=== PATIENT | male | born 1965 | race Caucasian/White ===

== ENCOUNTER → 2016-04-14 | Outpatient (CLI) | payer MEDICARE, OTHER ==
[~2016-04-14] VITALS: Ht 175.3 cm; Wt 86.4 kg
[~2016-04-14] MED LIST: AMIT50TA3 PO; AMLO-512 PO; ASCO500 PO; ASPI-556 PO; BACTDSB PO; DICL4100G TP; DOXY100C PO; FERR-89 PO; FOLI1 PO; HYDR-3290 PO; HYDR40TA PO; LEVO500 PO; METH2.5T6 PO; PARO20TA24 PO; POLY238P2 PO; PREG75 PO; TAMS0.4C32 PO
[2016-04-14 14:16] VITALS: BP 129/77
== END | disposition home or self-care (01) ==
LOC: EDBD 13:30 → HBOWC 13:35
PROVIDERS: ATTEND Emergency Medicine
DX: L97.511 Non-pressure chronic ulcer of other part of right foot limited to breakdown of skin (principal); L97.311 Non-pressure chronic ulcer of right ankle limited to breakdown of skin; L97.321 Non-pressure chronic ulcer of left ankle limited to breakdown of skin; L98.491 Non-pressure chronic ulcer of skin of other sites limited to breakdown of skin; M86.8X8 Other osteomyelitis, other site; L81.9 Disorder of pigmentation, unspecified; M12.88 Other specific arthropathies, not elsewhere classified, other specified site; F32.9 Major depressive disorder, single episode, unspecified; L84 Corns and callosities; Z86.718 Personal history of other venous thrombosis and embolism; Z89.022 Acquired absence of left finger(s)
CPT/HCPCS: 97597; G0463

== ENCOUNTER → 2016-04-22 | Outpatient (CLI) | payer MEDICARE, OTHER ==
[2016-04-22 11:10] VITALS: BP 150/70
== END | disposition home or self-care (01) ==
LOC: HBOWC 10:45
PROVIDERS: ATTEND Emergency Medicine
DX: T87.81 Dehiscence of amputation stump (principal); L97.513 Non-pressure chronic ulcer of other part of right foot with necrosis of muscle; L97.321 Non-pressure chronic ulcer of left ankle limited to breakdown of skin; L98.491 Non-pressure chronic ulcer of skin of other sites limited to breakdown of skin; F32.9 Major depressive disorder, single episode, unspecified; M86.8X8 Other osteomyelitis, other site; L84 Corns and callosities; Z86.718 Personal history of other venous thrombosis and embolism; Y83.5 Amputation of limb(s) as the cause of abnormal reaction of the patient, or of later complication, without mention of misadventure at the time of the procedure
CPT/HCPCS: 97597

== ENCOUNTER → 2016-05-03 | Outpatient (CLI) | payer MEDICARE, OTHER ==
[~2016-05-03] MED LIST changes: -DOXY100C PO; -FERR-89 PO; +FERS325 PO
[2016-05-03 11:39] VITALS: BP 135/70
== END | disposition home or self-care (01) ==
LOC: HBOWC 11:00
PROVIDERS: ATTEND Emergency Medicine
DX: T87.81 Dehiscence of amputation stump (principal); L97.511 Non-pressure chronic ulcer of other part of right foot limited to breakdown of skin; F32.9 Major depressive disorder, single episode, unspecified; M86.8X8 Other osteomyelitis, other site; Z89.022 Acquired absence of left finger(s); Z86.718 Personal history of other venous thrombosis and embolism; Y83.5 Amputation of limb(s) as the cause of abnormal reaction of the patient, or of later complication, without mention of misadventure at the time of the procedure
CPT/HCPCS: 97597; 97598

== ENCOUNTER → 2016-05-17 | Outpatient (CLI) | payer MEDICARE, OTHER ==
[2016-05-17 11:30] VITALS: BP 136/87
== END | disposition home or self-care (01) ==
LOC: HBOWC 11:03
PROVIDERS: ATTEND Emergency Medicine
DX: L97.511 Non-pressure chronic ulcer of other part of right foot limited to breakdown of skin (principal); M86.8X8 Other osteomyelitis, other site; G62.9 Polyneuropathy, unspecified; L81.9 Disorder of pigmentation, unspecified; D56.9 Thalassemia, unspecified; Z89.022 Acquired absence of left finger(s); Z89.421 Acquired absence of other right toe(s)
CPT/HCPCS: 97597

== ENCOUNTER → 2016-05-31 | Outpatient (CLI) | payer MEDICARE, OTHER ==
[~2016-05-31] MED LIST changes: +DOXY100C PO; +FERR-89 PO; -FERS325 PO
[2016-05-31 10:37] VITALS: BP 141/79
== END | disposition home or self-care (01) ==
LOC: HBOWC 10:06
PROVIDERS: ATTEND Emergency Medicine
DX: T87.81 Dehiscence of amputation stump (principal); L97.511 Non-pressure chronic ulcer of other part of right foot limited to breakdown of skin; F32.9 Major depressive disorder, single episode, unspecified; D56.3 Thalassemia minor; M86.9 Osteomyelitis, unspecified; G62.9 Polyneuropathy, unspecified; R21 Rash and other nonspecific skin eruption; Z89.022 Acquired absence of left finger(s); Z89.421 Acquired absence of other right toe(s); Y83.5 Amputation of limb(s) as the cause of abnormal reaction of the patient, or of later complication, without mention of misadventure at the time of the procedure
CPT/HCPCS: 87070; 87147; 87205; 97597

== ENCOUNTER → 2016-07-13 | Outpatient (CLI) | payer MEDICARE, OTHER ==
[~2016-07-13] MED LIST changes: -BACTDSB PO; -LEVO500 PO; +LIDOCAINE HCL 2% 5 ML JELLY TP ONE
[2016-07-13 15:49] VITALS: BP 113/76
== END | disposition home or self-care (01) ==
LOC: HBOWC 14:32
PROVIDERS: ATTEND Emergency Medicine
DX: L97.511 Non-pressure chronic ulcer of other part of right foot limited to breakdown of skin (principal); L97.521 Non-pressure chronic ulcer of other part of left foot limited to breakdown of skin; L97.811 Non-pressure chronic ulcer of other part of right lower leg limited to breakdown of skin; L97.311 Non-pressure chronic ulcer of right ankle limited to breakdown of skin; F32.9 Major depressive disorder, single episode, unspecified; Z89.421 Acquired absence of other right toe(s); M86.8X8 Other osteomyelitis, other site; Z89.022 Acquired absence of left finger(s)
CPT/HCPCS: 97597

== ENCOUNTER → 2016-07-26 | Outpatient (CLI) | payer MEDICARE, OTHER ==
[~2016-07-26] MED LIST changes: -LIDOCAINE HCL 2% 5 ML JELLY TP ONE
[2016-07-26 15:49] VITALS: BP 144/94
== END | disposition home or self-care (01) ==
LOC: HBOWC 14:33
PROVIDERS: ATTEND Emergency Medicine Undersea and Hyperbaric Medicine
DX: L97.421 Non-pressure chronic ulcer of left heel and midfoot limited to breakdown of skin (principal); L97.411 Non-pressure chronic ulcer of right heel and midfoot limited to breakdown of skin; L97.311 Non-pressure chronic ulcer of right ankle limited to breakdown of skin; G62.9 Polyneuropathy, unspecified; M86.8X8 Other osteomyelitis, other site; F32.9 Major depressive disorder, single episode, unspecified; Z89.421 Acquired absence of other right toe(s); Z89.022 Acquired absence of left finger(s)
CPT/HCPCS: 97597

== ENCOUNTER → 2016-08-20 | Outpatient (CLI) | payer MEDICARE, OTHER ==
[2016-08-20 14:54] VITALS: BP 102/63
== END | disposition home or self-care (01) ==
LOC: HBOWC 14:51
PROVIDERS: ATTEND Emergency Medicine Undersea and Hyperbaric Medicine
DX: L97.321 Non-pressure chronic ulcer of left ankle limited to breakdown of skin (principal); L97.311 Non-pressure chronic ulcer of right ankle limited to breakdown of skin; L97.421 Non-pressure chronic ulcer of left heel and midfoot limited to breakdown of skin; L97.521 Non-pressure chronic ulcer of other part of left foot limited to breakdown of skin; F32.9 Major depressive disorder, single episode, unspecified; M86.8X8 Other osteomyelitis, other site; G62.9 Polyneuropathy, unspecified; Z89.421 Acquired absence of other right toe(s); Z89.022 Acquired absence of left finger(s)
CPT/HCPCS: 97597

== ENCOUNTER → 2016-09-03 | Outpatient (CLI) | payer MEDICARE, OTHER ==
[~2016-09-03] MED LIST changes: +LIDOCAINE HCL 2% 5 ML JELLY TP ONE
[2016-09-03 14:09] VITALS: BP 128/78
== END | disposition home or self-care (01) ==
LOC: HBOWC 13:52
PROVIDERS: ATTEND Emergency Medicine
DX: L97.521 Non-pressure chronic ulcer of other part of left foot limited to breakdown of skin (principal); L97.511 Non-pressure chronic ulcer of other part of right foot limited to breakdown of skin; L97.321 Non-pressure chronic ulcer of left ankle limited to breakdown of skin; L97.311 Non-pressure chronic ulcer of right ankle limited to breakdown of skin; G62.9 Polyneuropathy, unspecified; M06.9 Rheumatoid arthritis, unspecified; F32.9 Major depressive disorder, single episode, unspecified; M86.8X8 Other osteomyelitis, other site; Z89.022 Acquired absence of left finger(s); Z89.421 Acquired absence of other right toe(s)
CPT/HCPCS: 97597

== ENCOUNTER → 2016-09-16 | Outpatient (CLI) | payer MEDICARE, OTHER ==
[~2016-09-16] MED LIST changes: -LIDOCAINE HCL 2% 5 ML JELLY TP ONE
[2016-09-16 14:52] VITALS: BP 136/60
== END | disposition home or self-care (01) ==
LOC: HBOWC 14:45
PROVIDERS: ATTEND Emergency Medicine
DX: L97.321 Non-pressure chronic ulcer of left ankle limited to breakdown of skin (principal); L97.311 Non-pressure chronic ulcer of right ankle limited to breakdown of skin; Z89.022 Acquired absence of left finger(s); Z89.421 Acquired absence of other right toe(s); F32.9 Major depressive disorder, single episode, unspecified; M86.8X8 Other osteomyelitis, other site; M06.9 Rheumatoid arthritis, unspecified
CPT/HCPCS: 97597

== ENCOUNTER → 2016-11-01 | Outpatient (CLI) | payer MEDICARE, OTHER ==
[~2016-11-01] MED LIST changes: +LIDOCAINE HCL 2% 5 ML JELLY TP ONE
[2016-11-01 15:01] VITALS: BP 143/81
== END | disposition home or self-care (01) ==
LOC: HBOWC 14:17
PROVIDERS: ATTEND Surgery Plastic and Reconstructive Surgery
DX: L97.321 Non-pressure chronic ulcer of left ankle limited to breakdown of skin (principal); L97.311 Non-pressure chronic ulcer of right ankle limited to breakdown of skin; F32.9 Major depressive disorder, single episode, unspecified; M06.9 Rheumatoid arthritis, unspecified; M86.8X8 Other osteomyelitis, other site; Z89.022 Acquired absence of left finger(s); Z89.421 Acquired absence of other right toe(s)
CPT/HCPCS: 97597

== ENCOUNTER → 2017-06-14 | Outpatient (CLI) | payer MEDICARE, OTHER ==
[~2017-06-14] VITALS: Ht 175.3 cm; Wt 82.6 kg
[2017-06-14 12:37] VITALS: BP 121/77
== END | disposition home or self-care (01) ==
LOC: HBOWC 10:55
PROVIDERS: ATTEND Emergency Medicine
DX: E11.622 Type 2 diabetes mellitus with other skin ulcer (principal); L89.523 Pressure ulcer of left ankle, stage 3; L97.321 Non-pressure chronic ulcer of left ankle limited to breakdown of skin; E11.621 Type 2 diabetes mellitus with foot ulcer; L97.411 Non-pressure chronic ulcer of right heel and midfoot limited to breakdown of skin; L89.613 Pressure ulcer of right heel, stage 3; E11.42 Type 2 diabetes mellitus with diabetic polyneuropathy; M06.9 Rheumatoid arthritis, unspecified; F32.9 Major depressive disorder, single episode, unspecified; E11.69 Type 2 diabetes mellitus with other specified complication; M86.8X8 Other osteomyelitis, other site; Z89.022 Acquired absence of left finger(s); Z89.421 Acquired absence of other right toe(s)
CPT/HCPCS: 11042; 87070; 87147; 87205

== ENCOUNTER → 2017-06-21 | Outpatient (CLI) | payer MEDICARE, OTHER ==
[~2017-06-21] MED LIST changes: -POLY238P2 PO
[2017-06-21 11:21] VITALS: BP 144/87
[2017-06-21 15:07] LABS: ALBUMIN 3.6 g/dL (3.4-5.0); C-REACTIVE PROTEIN QUANT 0.51 mg/dL (0.00-0.30)
== END | disposition home or self-care (01) ==
LOC: HBOWC 10:29
PROVIDERS: ATTEND Emergency Medicine
DX: E11.622 Type 2 diabetes mellitus with other skin ulcer (principal); L89.523 Pressure ulcer of left ankle, stage 3; L97.321 Non-pressure chronic ulcer of left ankle limited to breakdown of skin; M06.9 Rheumatoid arthritis, unspecified; E11.69 Type 2 diabetes mellitus with other specified complication; M86.8X8 Other osteomyelitis, other site; E11.42 Type 2 diabetes mellitus with diabetic polyneuropathy; F32.9 Major depressive disorder, single episode, unspecified; Z89.022 Acquired absence of left finger(s); Z89.421 Acquired absence of other right toe(s)
CPT/HCPCS: 11042; 84134; 85651; 86140

== ENCOUNTER → 2017-06-28 | Outpatient (CLI) | payer MEDICARE, OTHER ==
[2017-06-28 11:16] VITALS: BP 127/90
== END | disposition home or self-care (01) ==
LOC: HBOWC 10:34
PROVIDERS: ATTEND Emergency Medicine
DX: E11.622 Type 2 diabetes mellitus with other skin ulcer (principal); L97.321 Non-pressure chronic ulcer of left ankle limited to breakdown of skin; S91.301D Unspecified open wound, right foot, subsequent encounter; L89.523 Pressure ulcer of left ankle, stage 3; M06.9 Rheumatoid arthritis, unspecified; F32.9 Major depressive disorder, single episode, unspecified; E11.69 Type 2 diabetes mellitus with other specified complication; M86.8X8 Other osteomyelitis, other site; E11.42 Type 2 diabetes mellitus with diabetic polyneuropathy; Z89.421 Acquired absence of other right toe(s); Z89.022 Acquired absence of left finger(s); X58.XXXD Exposure to other specified factors, subsequent encounter
CPT/HCPCS: 11042

== ENCOUNTER → 2017-07-12 | Outpatient (CLI) | payer MEDICARE, OTHER ==
[2017-07-12 11:58] VITALS: BP 119/64
== END | disposition home or self-care (01) ==
LOC: HBOWC 11:26
PROVIDERS: ATTEND Emergency Medicine
DX: E11.621 Type 2 diabetes mellitus with foot ulcer (principal); L89.613 Pressure ulcer of right heel, stage 3; L97.411 Non-pressure chronic ulcer of right heel and midfoot limited to breakdown of skin; E11.622 Type 2 diabetes mellitus with other skin ulcer; L89.523 Pressure ulcer of left ankle, stage 3; L89.313 Pressure ulcer of right buttock, stage 3; L98.411 Non-pressure chronic ulcer of buttock limited to breakdown of skin; L97.321 Non-pressure chronic ulcer of left ankle limited to breakdown of skin; F32.9 Major depressive disorder, single episode, unspecified; M06.9 Rheumatoid arthritis, unspecified; E11.42 Type 2 diabetes mellitus with diabetic polyneuropathy; E11.69 Type 2 diabetes mellitus with other specified complication; M86.8X8 Other osteomyelitis, other site; Z89.421 Acquired absence of other right toe(s); Z89.022 Acquired absence of left finger(s)
CPT/HCPCS: 11042; 93880; 93925

== ENCOUNTER → 2017-07-19 | Outpatient (CLI) | payer MEDICARE, OTHER ==
[~2017-07-19] MED LIST changes: -LIDOCAINE HCL 2% 5 ML JELLY TP ONE
[2017-07-19 11:41] VITALS: BP 134/67
== END | disposition home or self-care (01) ==
LOC: HBOWC 10:31
PROVIDERS: ATTEND Emergency Medicine
DX: E11.622 Type 2 diabetes mellitus with other skin ulcer (principal); L89.523 Pressure ulcer of left ankle, stage 3; L97.321 Non-pressure chronic ulcer of left ankle limited to breakdown of skin; E11.42 Type 2 diabetes mellitus with diabetic polyneuropathy; M06.9 Rheumatoid arthritis, unspecified; E11.69 Type 2 diabetes mellitus with other specified complication; M86.8X8 Other osteomyelitis, other site; F32.9 Major depressive disorder, single episode, unspecified; Z89.022 Acquired absence of left finger(s); Z89.421 Acquired absence of other right toe(s)
CPT/HCPCS: 11042

== ENCOUNTER → 2017-08-02 | Outpatient (CLI) | payer MEDICARE, OTHER ==
[2017-08-02 11:00] VITALS: BP 148/80
== END | disposition home or self-care (01) ==
LOC: HBOWC 10:27
PROVIDERS: ATTEND Emergency Medicine
DX: E11.622 Type 2 diabetes mellitus with other skin ulcer (principal); L89.523 Pressure ulcer of left ankle, stage 3; L97.321 Non-pressure chronic ulcer of left ankle limited to breakdown of skin; E11.42 Type 2 diabetes mellitus with diabetic polyneuropathy; M06.9 Rheumatoid arthritis, unspecified; E11.69 Type 2 diabetes mellitus with other specified complication; M86.8X8 Other osteomyelitis, other site; F32.9 Major depressive disorder, single episode, unspecified; Z89.022 Acquired absence of left finger(s); Z89.421 Acquired absence of other right toe(s)
CPT/HCPCS: 11042

== ENCOUNTER → 2017-08-16 | Outpatient (CLI) | payer MEDICARE, OTHER ==
[~2017-08-16] MED LIST changes: -DOXY100C PO; +LEVO500 PO; +LIDOCAINE HCL 4% 50 ML SOLUTION ONE
[2017-08-16 10:48] VITALS: BP 107/61
== END | disposition home or self-care (01) ==
LOC: HBOWC 10:39
PROVIDERS: ATTEND Emergency Medicine
DX: E11.622 Type 2 diabetes mellitus with other skin ulcer (principal); L89.523 Pressure ulcer of left ankle, stage 3; L97.321 Non-pressure chronic ulcer of left ankle limited to breakdown of skin; L89.613 Pressure ulcer of right heel, stage 3; E11.621 Type 2 diabetes mellitus with foot ulcer; L97.411 Non-pressure chronic ulcer of right heel and midfoot limited to breakdown of skin; L89.313 Pressure ulcer of right buttock, stage 3; L98.411 Non-pressure chronic ulcer of buttock limited to breakdown of skin; E11.42 Type 2 diabetes mellitus with diabetic polyneuropathy; M06.9 Rheumatoid arthritis, unspecified; E11.69 Type 2 diabetes mellitus with other specified complication; M86.8X8 Other osteomyelitis, other site; F32.9 Major depressive disorder, single episode, unspecified; Z89.022 Acquired absence of left finger(s); Z89.421 Acquired absence of other right toe(s)
CPT/HCPCS: 11042; 87070; 87205

== ENCOUNTER → 2017-09-06 | Outpatient (CLI) | payer MEDICARE, OTHER ==
[~2017-09-06] MED LIST changes: +LIDOCAINE HCL 2% 5 ML JELLY TP ONE; -LIDOCAINE HCL 4% 50 ML SOLUTION ONE
[2017-09-06 11:10] VITALS: BP 129/81
== END | disposition home or self-care (01) ==
LOC: HBOWC 10:48
PROVIDERS: ATTEND Emergency Medicine
DX: E11.622 Type 2 diabetes mellitus with other skin ulcer (principal); L89.523 Pressure ulcer of left ankle, stage 3; L97.321 Non-pressure chronic ulcer of left ankle limited to breakdown of skin; L89.613 Pressure ulcer of right heel, stage 3; E11.621 Type 2 diabetes mellitus with foot ulcer; L97.411 Non-pressure chronic ulcer of right heel and midfoot limited to breakdown of skin; L89.313 Pressure ulcer of right buttock, stage 3; L98.411 Non-pressure chronic ulcer of buttock limited to breakdown of skin; E11.42 Type 2 diabetes mellitus with diabetic polyneuropathy; M06.9 Rheumatoid arthritis, unspecified; E11.69 Type 2 diabetes mellitus with other specified complication; M86.8X8 Other osteomyelitis, other site; F32.9 Major depressive disorder, single episode, unspecified; Z89.022 Acquired absence of left finger(s); Z89.421 Acquired absence of other right toe(s)
CPT/HCPCS: 11042

== ENCOUNTER → 2017-09-13 | Outpatient (CLI) | payer MEDICARE, OTHER ==
[~2017-09-13] MED LIST changes: -LIDOCAINE HCL 2% 5 ML JELLY TP ONE
[2017-09-13 11:20] VITALS: BP 121/74
[2017-09-13 12:49] LABS: ALBUMIN 3.8 g/dL (3.4-5.0); C-REACTIVE PROTEIN QUANT 0.43 mg/dL (0.00-0.30)
== END | disposition home or self-care (01) ==
LOC: HBOWC 10:44
PROVIDERS: ATTEND Emergency Medicine
DX: E11.622 Type 2 diabetes mellitus with other skin ulcer (principal); L89.523 Pressure ulcer of left ankle, stage 3; L97.321 Non-pressure chronic ulcer of left ankle limited to breakdown of skin; E11.621 Type 2 diabetes mellitus with foot ulcer; L89.613 Pressure ulcer of right heel, stage 3; L97.411 Non-pressure chronic ulcer of right heel and midfoot limited to breakdown of skin; L89.313 Pressure ulcer of right buttock, stage 3; L98.411 Non-pressure chronic ulcer of buttock limited to breakdown of skin; E11.42 Type 2 diabetes mellitus with diabetic polyneuropathy; M06.9 Rheumatoid arthritis, unspecified; E11.69 Type 2 diabetes mellitus with other specified complication; M86.8X8 Other osteomyelitis, other site; F32.9 Major depressive disorder, single episode, unspecified; Z89.022 Acquired absence of left finger(s); Z89.421 Acquired absence of other right toe(s)
CPT/HCPCS: 11042; 84134; 85651; 86140

== ENCOUNTER → 2017-09-27 | Outpatient (CLI) | payer MEDICARE, OTHER ==
[2017-09-27 11:15] VITALS: BP 126/77
== END | disposition home or self-care (01) ==
LOC: HBOWC 11:08
PROVIDERS: ATTEND Emergency Medicine
DX: E11.622 Type 2 diabetes mellitus with other skin ulcer (principal); L89.523 Pressure ulcer of left ankle, stage 3; L97.321 Non-pressure chronic ulcer of left ankle limited to breakdown of skin; E11.621 Type 2 diabetes mellitus with foot ulcer; L89.613 Pressure ulcer of right heel, stage 3; L97.411 Non-pressure chronic ulcer of right heel and midfoot limited to breakdown of skin; L89.313 Pressure ulcer of right buttock, stage 3; L98.411 Non-pressure chronic ulcer of buttock limited to breakdown of skin; E11.42 Type 2 diabetes mellitus with diabetic polyneuropathy; M06.9 Rheumatoid arthritis, unspecified; E11.69 Type 2 diabetes mellitus with other specified complication; M86.8X8 Other osteomyelitis, other site; F32.9 Major depressive disorder, single episode, unspecified; Z89.022 Acquired absence of left finger(s); Z89.421 Acquired absence of other right toe(s)
CPT/HCPCS: 11042

== ENCOUNTER → 2017-10-25 | Outpatient (CLI) | payer MEDICARE, OTHER ==
[~2017-10-25] MED LIST changes: +LIDOCAINE 2% 5 ML JELLY TP ONE
[2017-10-25 11:30] VITALS: BP 130/78
== END | disposition home or self-care (01) ==
LOC: HBOWC 11:29
PROVIDERS: ATTEND Emergency Medicine
DX: E11.621 Type 2 diabetes mellitus with foot ulcer (principal); L89.613 Pressure ulcer of right heel, stage 3; L97.411 Non-pressure chronic ulcer of right heel and midfoot limited to breakdown of skin; E11.622 Type 2 diabetes mellitus with other skin ulcer; L89.523 Pressure ulcer of left ankle, stage 3; L97.321 Non-pressure chronic ulcer of left ankle limited to breakdown of skin; L89.313 Pressure ulcer of right buttock, stage 3; L98.411 Non-pressure chronic ulcer of buttock limited to breakdown of skin; E11.42 Type 2 diabetes mellitus with diabetic polyneuropathy; M06.9 Rheumatoid arthritis, unspecified; E11.69 Type 2 diabetes mellitus with other specified complication; M86.8X8 Other osteomyelitis, other site; F32.9 Major depressive disorder, single episode, unspecified; Z89.022 Acquired absence of left finger(s); Z89.421 Acquired absence of other right toe(s)
CPT/HCPCS: 11042

== ENCOUNTER → 2018-02-22 | Outpatient (CLI) | payer MEDICARE, OTHER ==
[~2018-02-22] VITALS: Ht 175.3 cm; Wt 83.9 kg
[~2018-02-22] MED LIST changes: +APIX2.5T PO
[2018-02-22 11:15] VITALS: BP 124/66
== END | disposition home or self-care (01) ==
LOC: HBOWC 11:21
PROVIDERS: ATTEND Internal Medicine
DX: T81.89XA Other complications of procedures, not elsewhere classified, initial encounter (principal); E11.621 Type 2 diabetes mellitus with foot ulcer; L89.523 Pressure ulcer of left ankle, stage 3; L97.322 Non-pressure chronic ulcer of left ankle with fat layer exposed; L89.613 Pressure ulcer of right heel, stage 3; L97.412 Non-pressure chronic ulcer of right heel and midfoot with fat layer exposed; L89.893 Pressure ulcer of other site, stage 3; L97.511 Non-pressure chronic ulcer of other part of right foot limited to breakdown of skin; E11.40 Type 2 diabetes mellitus with diabetic neuropathy, unspecified; M06.9 Rheumatoid arthritis, unspecified; D56.3 Thalassemia minor; D64.89 Other specified anemias; F32.9 Major depressive disorder, single episode, unspecified; Z86.718 Personal history of other venous thrombosis and embolism; Z89.421 Acquired absence of other right toe(s); Z89.022 Acquired absence of left finger(s); Z79.899 Other long term (current) drug therapy; Y83.8 Other surgical procedures as the cause of abnormal reaction of the patient, or of later complication, without mention of misadventure at the time of the procedure; Y92.89 Other specified places as the place of occurrence of the external cause
CPT/HCPCS: 11042

== ENCOUNTER → 2018-03-15 | Outpatient (CLI) | payer MEDICARE, OTHER ==
[~2018-03-15] MED LIST changes: -ASPI-556 PO; -DICL4100G TP; -LEVO500 PO
[2018-03-15 11:00] VITALS: BP 119/69
[2018-03-15 11:31] VITALS: BP 119/69
[2018-03-15 13:21] LABS: BASOPHILS % (AUTO) 0.8 % (0.0-2.0); EOSINOPHILS % (AUTO) 1.3 % (1.0-6.0); HEMATOCRIT 32.7 % (41-53); LYMPHOCYTES # (AUTO) 1.8 K/uL (1.0-4.8); LYMPHOCYTES % (AUTO) 18.7 % (22.0-44.0); MEAN CORPUSCULAR HEMOGLOBIN 18.2 pg (26.0-34.0); MEAN CORPUSCULAR HGB CONC 30.5 G/dL (31.0-37.0); MONOCYTES # (AUTO) 0.5 K/uL (0.1-1.0); MONOCYTES % (AUTO) 4.9 % (2.0-9.0); NEUTROPHILS # (AUTO) 7.2 K/uL (1.8-7.7); NEUTROPHILS % (AUTO) 74.3 % (40.0-70.0); PLATELET COUNT (AUTO) 206 K/uL (150-450); RED BLOOD CELL COUNT(AUTO) 5.47 MIL/uL (4.50-5.90); RED CELL DISTRIBUTION WIDTH 20.6 % (11.5-14.5)
[2018-03-15 13:23] LABS: MEAN CORPUSCULAR VOLUME 66 fL (80-100)
[2018-03-15 13:39] LABS: ALANINE AMINOTRANSFERASE 23 U/L (12-78); ALBUMIN 3.7 g/dL (3.4-5.0); ALKALINE PHOSPHATASE 74 U/L (46-116); ANION GAP 7 mmol/L (8-16); ASPARTATE AMINOTRANSFERASE 23 U/L (15-37); BILIRUBIN,TOTAL 0.2 mg/dL (0.1-1.0); C-REACTIVE PROTEIN QUANT 0.18 mg/dL (0.00-0.30); CALCIUM, TOTAL 8.8 mg/dL (8.8-10.5); CARBON DIOXIDE 29 mmol/L (22-29); CHLORIDE 102 mmol/L (98-107); CREATININE 0.95 mg/dL (0.60-1.30); GLOMERULAR FILTR. RATE CALC > 60 mL/min (>60); GLUCOSE,RANDOM 82 mg/dL (70-110); POTASSIUM 4.6 mmol/L (3.5-5.1); SODIUM SERUM 138 mmol/L (136-145); UREA NITROGEN, BLOOD 22 mg/dL (7-18)
[2018-03-15 14:17] LABS: ERYTHROCYTE SEDIMENTATION RATE 13 MM/HR (0-15)
== END | disposition home or self-care (01) ==
LOC: HBOWC 10:59
PROVIDERS: ATTEND Internal Medicine
DX: M19.071 Primary osteoarthritis, right ankle and foot (principal); M79.89 Other specified soft tissue disorders; M19.072 Primary osteoarthritis, left ankle and foot; E11.9 Type 2 diabetes mellitus without complications
CPT/HCPCS: 84134; 85651; 86140

== ENCOUNTER → 2018-03-22 | Outpatient (CLI) | payer MEDICARE, OTHER ==
[~2018-03-22] MED LIST changes: -LIDOCAINE 2% 5 ML JELLY TP ONE
[2018-03-22 11:50] VITALS: BP 77/44
[2018-03-22 12:08] VITALS: BP 134/70
== END | disposition home or self-care (01) ==
LOC: HBOWC 10:55
PROVIDERS: ATTEND Internal Medicine
DX: T81.89XD Other complications of procedures, not elsewhere classified, subsequent encounter (principal); E11.622 Type 2 diabetes mellitus with other skin ulcer; L89.523 Pressure ulcer of left ankle, stage 3; L97.322 Non-pressure chronic ulcer of left ankle with fat layer exposed; E11.621 Type 2 diabetes mellitus with foot ulcer; L89.613 Pressure ulcer of right heel, stage 3; L97.412 Non-pressure chronic ulcer of right heel and midfoot with fat layer exposed; L89.893 Pressure ulcer of other site, stage 3; L97.512 Non-pressure chronic ulcer of other part of right foot with fat layer exposed; M06.9 Rheumatoid arthritis, unspecified; E11.69 Type 2 diabetes mellitus with other specified complication; M86.8X8 Other osteomyelitis, other site; M19.071 Primary osteoarthritis, right ankle and foot; M19.072 Primary osteoarthritis, left ankle and foot; E11.40 Type 2 diabetes mellitus with diabetic neuropathy, unspecified; E11.49 Type 2 diabetes mellitus with other diabetic neurological complication; F32.9 Major depressive disorder, single episode, unspecified; Z79.899 Other long term (current) drug therapy; Z86.718 Personal history of other venous thrombosis and embolism; Z89.421 Acquired absence of other right toe(s); Z89.022 Acquired absence of left finger(s); Y83.8 Other surgical procedures as the cause of abnormal reaction of the patient, or of later complication, without mention of misadventure at the time of the procedure
CPT/HCPCS: 11042

== ENCOUNTER → 2018-04-05 | Outpatient (CLI) | payer MEDICARE, OTHER ==
[2018-04-05 11:00] VITALS: BP 129/85
== END | disposition home or self-care (01) ==
LOC: HBOWC 10:56
PROVIDERS: ATTEND Internal Medicine
DX: T81.89XD Other complications of procedures, not elsewhere classified, subsequent encounter (principal); E11.622 Type 2 diabetes mellitus with other skin ulcer; L89.523 Pressure ulcer of left ankle, stage 3; L89.613 Pressure ulcer of right heel, stage 3; L89.893 Pressure ulcer of other site, stage 3; L97.322 Non-pressure chronic ulcer of left ankle with fat layer exposed; E11.621 Type 2 diabetes mellitus with foot ulcer; L97.412 Non-pressure chronic ulcer of right heel and midfoot with fat layer exposed; L97.512 Non-pressure chronic ulcer of other part of right foot with fat layer exposed; M06.9 Rheumatoid arthritis, unspecified; E11.69 Type 2 diabetes mellitus with other specified complication; M86.142 Other acute osteomyelitis, left hand; E11.40 Type 2 diabetes mellitus with diabetic neuropathy, unspecified; D56.3 Thalassemia minor; F32.9 Major depressive disorder, single episode, unspecified; M19.071 Primary osteoarthritis, right ankle and foot; M19.072 Primary osteoarthritis, left ankle and foot; Z89.022 Acquired absence of left finger(s); Z86.718 Personal history of other venous thrombosis and embolism; Z89.421 Acquired absence of other right toe(s); Z79.899 Other long term (current) drug therapy; Y83.8 Other surgical procedures as the cause of abnormal reaction of the patient, or of later complication, without mention of misadventure at the time of the procedure
CPT/HCPCS: 11042; 97597

== ENCOUNTER → 2018-04-12 | Outpatient (CLI) | payer MEDICARE, OTHER ==
[2018-04-12 11:18] VITALS: BP 124/68
== END | disposition home or self-care (01) ==
LOC: HBOWC 10:51
PROVIDERS: ATTEND Internal Medicine
DX: T81.89XD Other complications of procedures, not elsewhere classified, subsequent encounter (principal); E11.622 Type 2 diabetes mellitus with other skin ulcer; L89.523 Pressure ulcer of left ankle, stage 3; L97.322 Non-pressure chronic ulcer of left ankle with fat layer exposed; E11.621 Type 2 diabetes mellitus with foot ulcer; L97.412 Non-pressure chronic ulcer of right heel and midfoot with fat layer exposed; L89.613 Pressure ulcer of right heel, stage 3; L89.893 Pressure ulcer of other site, stage 3; L97.512 Non-pressure chronic ulcer of other part of right foot with fat layer exposed; E11.42 Type 2 diabetes mellitus with diabetic polyneuropathy; M06.9 Rheumatoid arthritis, unspecified; D56.3 Thalassemia minor; E11.69 Type 2 diabetes mellitus with other specified complication; M86.142 Other acute osteomyelitis, left hand; F32.9 Major depressive disorder, single episode, unspecified; Z86.718 Personal history of other venous thrombosis and embolism; Z79.899 Other long term (current) drug therapy; Z89.022 Acquired absence of left finger(s); Z89.421 Acquired absence of other right toe(s); Y83.8 Other surgical procedures as the cause of abnormal reaction of the patient, or of later complication, without mention of misadventure at the time of the procedure
CPT/HCPCS: 97597

== ENCOUNTER → 2018-05-03 | Outpatient (CLI) | payer MEDICARE, OTHER ==
[2018-05-03 11:05] VITALS: BP 134/78
== END | disposition home or self-care (01) ==
LOC: HBOWC 10:53
PROVIDERS: ATTEND Internal Medicine
DX: T81.89XD Other complications of procedures, not elsewhere classified, subsequent encounter (principal); E11.622 Type 2 diabetes mellitus with other skin ulcer; L89.523 Pressure ulcer of left ankle, stage 3; L89.613 Pressure ulcer of right heel, stage 3; E11.621 Type 2 diabetes mellitus with foot ulcer; L89.893 Pressure ulcer of other site, stage 3; L97.322 Non-pressure chronic ulcer of left ankle with fat layer exposed; L97.411 Non-pressure chronic ulcer of right heel and midfoot limited to breakdown of skin; L97.511 Non-pressure chronic ulcer of other part of right foot limited to breakdown of skin; E11.42 Type 2 diabetes mellitus with diabetic polyneuropathy; D56.3 Thalassemia minor; D64.9 Anemia, unspecified; M19.071 Primary osteoarthritis, right ankle and foot; M19.072 Primary osteoarthritis, left ankle and foot; M06.9 Rheumatoid arthritis, unspecified; E11.69 Type 2 diabetes mellitus with other specified complication; M86.142 Other acute osteomyelitis, left hand; F32.9 Major depressive disorder, single episode, unspecified; Z86.718 Personal history of other venous thrombosis and embolism; Z79.899 Other long term (current) drug therapy; Z89.421 Acquired absence of other right toe(s); Z89.022 Acquired absence of left finger(s); Y83.8 Other surgical procedures as the cause of abnormal reaction of the patient, or of later complication, without mention of misadventure at the time of the procedure

== ENCOUNTER → 2018-05-17 | Outpatient (CLI) | payer MEDICARE, OTHER ==
[2018-05-17 11:14] VITALS: BP 137/70
== END | disposition home or self-care (01) ==
LOC: HBOWC 11:04
PROVIDERS: ATTEND Internal Medicine
DX: T81.89XD Other complications of procedures, not elsewhere classified, subsequent encounter (principal); E11.622 Type 2 diabetes mellitus with other skin ulcer; L89.523 Pressure ulcer of left ankle, stage 3; L89.613 Pressure ulcer of right heel, stage 3; L89.893 Pressure ulcer of other site, stage 3; L97.322 Non-pressure chronic ulcer of left ankle with fat layer exposed; E11.621 Type 2 diabetes mellitus with foot ulcer; L97.511 Non-pressure chronic ulcer of other part of right foot limited to breakdown of skin; L97.418 Non-pressure chronic ulcer of right heel and midfoot with other specified severity; E11.42 Type 2 diabetes mellitus with diabetic polyneuropathy; E11.69 Type 2 diabetes mellitus with other specified complication; M86.142 Other acute osteomyelitis, left hand; D56.3 Thalassemia minor; M19.071 Primary osteoarthritis, right ankle and foot; M19.072 Primary osteoarthritis, left ankle and foot; M06.9 Rheumatoid arthritis, unspecified; F32.9 Major depressive disorder, single episode, unspecified; Z86.718 Personal history of other venous thrombosis and embolism; Z89.421 Acquired absence of other right toe(s); Z89.022 Acquired absence of left finger(s); Z79.899 Other long term (current) drug therapy; Y83.8 Other surgical procedures as the cause of abnormal reaction of the patient, or of later complication, without mention of misadventure at the time of the procedure

== ENCOUNTER → 2018-05-31 | Outpatient (CLI) | payer MEDICARE, OTHER ==
[2018-05-31 11:33] VITALS: BP 133/79
== END | disposition home or self-care (01) ==
LOC: HBOWC 10:23
PROVIDERS: ATTEND Internal Medicine
DX: T81.89XD Other complications of procedures, not elsewhere classified, subsequent encounter (principal); E11.622 Type 2 diabetes mellitus with other skin ulcer; L89.523 Pressure ulcer of left ankle, stage 3; L97.322 Non-pressure chronic ulcer of left ankle with fat layer exposed; L89.512 Pressure ulcer of right ankle, stage 2; L97.311 Non-pressure chronic ulcer of right ankle limited to breakdown of skin; E11.621 Type 2 diabetes mellitus with foot ulcer; L89.613 Pressure ulcer of right heel, stage 3; L97.418 Non-pressure chronic ulcer of right heel and midfoot with other specified severity; L89.893 Pressure ulcer of other site, stage 3; L97.511 Non-pressure chronic ulcer of other part of right foot limited to breakdown of skin; E11.42 Type 2 diabetes mellitus with diabetic polyneuropathy; E11.69 Type 2 diabetes mellitus with other specified complication; M86.142 Other acute osteomyelitis, left hand; D56.1 Beta thalassemia; M06.9 Rheumatoid arthritis, unspecified; F32.9 Major depressive disorder, single episode, unspecified; Z79.891 Long term (current) use of opiate analgesic; Z89.022 Acquired absence of left finger(s); Z86.718 Personal history of other venous thrombosis and embolism; Y83.8 Other surgical procedures as the cause of abnormal reaction of the patient, or of later complication, without mention of misadventure at the time of the procedure; Z89.421 Acquired absence of other right toe(s)
CPT/HCPCS: 11042

== ENCOUNTER → 2018-06-14 | Outpatient (CLI) | payer MEDICARE, OTHER ==
[2018-06-14 11:20] VITALS: BP 124/90
== END | disposition home or self-care (01) ==
LOC: HBOWC 11:04
PROVIDERS: ATTEND Internal Medicine
DX: T81.89XD Other complications of procedures, not elsewhere classified, subsequent encounter (principal); E11.622 Type 2 diabetes mellitus with other skin ulcer; L89.523 Pressure ulcer of left ankle, stage 3; L97.322 Non-pressure chronic ulcer of left ankle with fat layer exposed; L89.512 Pressure ulcer of right ankle, stage 2; L97.311 Non-pressure chronic ulcer of right ankle limited to breakdown of skin; E11.621 Type 2 diabetes mellitus with foot ulcer; L89.613 Pressure ulcer of right heel, stage 3; L97.418 Non-pressure chronic ulcer of right heel and midfoot with other specified severity; L89.893 Pressure ulcer of other site, stage 3; L97.511 Non-pressure chronic ulcer of other part of right foot limited to breakdown of skin; E11.42 Type 2 diabetes mellitus with diabetic polyneuropathy; E11.69 Type 2 diabetes mellitus with other specified complication; M86.142 Other acute osteomyelitis, left hand; D56.1 Beta thalassemia; M06.9 Rheumatoid arthritis, unspecified; F32.9 Major depressive disorder, single episode, unspecified; Z79.891 Long term (current) use of opiate analgesic; Z89.022 Acquired absence of left finger(s); Y83.8 Other surgical procedures as the cause of abnormal reaction of the patient, or of later complication, without mention of misadventure at the time of the procedure

== ENCOUNTER → 2018-07-12 | Outpatient (CLI) | payer MEDICARE, OTHER ==
[2018-07-12 11:21] VITALS: BP 107/77
== END | disposition home or self-care (01) ==
LOC: HBOWC 11:06
PROVIDERS: ATTEND Internal Medicine
DX: T81.89XD Other complications of procedures, not elsewhere classified, subsequent encounter (principal); E11.622 Type 2 diabetes mellitus with other skin ulcer; L89.523 Pressure ulcer of left ankle, stage 3; L97.322 Non-pressure chronic ulcer of left ankle with fat layer exposed; L89.512 Pressure ulcer of right ankle, stage 2; L97.311 Non-pressure chronic ulcer of right ankle limited to breakdown of skin; E11.621 Type 2 diabetes mellitus with foot ulcer; L89.613 Pressure ulcer of right heel, stage 3; L97.418 Non-pressure chronic ulcer of right heel and midfoot with other specified severity; L89.893 Pressure ulcer of other site, stage 3; L97.511 Non-pressure chronic ulcer of other part of right foot limited to breakdown of skin; E11.42 Type 2 diabetes mellitus with diabetic polyneuropathy; E11.69 Type 2 diabetes mellitus with other specified complication; M86.142 Other acute osteomyelitis, left hand; D56.1 Beta thalassemia; M06.9 Rheumatoid arthritis, unspecified; F32.9 Major depressive disorder, single episode, unspecified; Z79.891 Long term (current) use of opiate analgesic; Z89.022 Acquired absence of left finger(s); Y83.8 Other surgical procedures as the cause of abnormal reaction of the patient, or of later complication, without mention of misadventure at the time of the procedure

== ENCOUNTER → 2018-08-16 | Outpatient (CLI) | payer MEDICARE, OTHER ==
[~2018-08-16] MED LIST changes: -AMLO-512 PO; +AMLO10TA7 PO; +LIDOCAINE 2% 5 ML JELLY TP ONE
[2018-08-16 11:20] VITALS: BP 123/78
== END | disposition home or self-care (01) ==
LOC: HBOWC 10:43
PROVIDERS: ATTEND Internal Medicine
DX: T81.89XD Other complications of procedures, not elsewhere classified, subsequent encounter (principal); E11.622 Type 2 diabetes mellitus with other skin ulcer; L89.523 Pressure ulcer of left ankle, stage 3; L97.322 Non-pressure chronic ulcer of left ankle with fat layer exposed; L89.512 Pressure ulcer of right ankle, stage 2; L97.311 Non-pressure chronic ulcer of right ankle limited to breakdown of skin; E11.621 Type 2 diabetes mellitus with foot ulcer; L89.613 Pressure ulcer of right heel, stage 3; L97.418 Non-pressure chronic ulcer of right heel and midfoot with other specified severity; L89.893 Pressure ulcer of other site, stage 3; L97.511 Non-pressure chronic ulcer of other part of right foot limited to breakdown of skin; E11.42 Type 2 diabetes mellitus with diabetic polyneuropathy; E11.69 Type 2 diabetes mellitus with other specified complication; M86.142 Other acute osteomyelitis, left hand; D56.1 Beta thalassemia; M06.9 Rheumatoid arthritis, unspecified; F32.9 Major depressive disorder, single episode, unspecified; Z79.891 Long term (current) use of opiate analgesic; Z89.022 Acquired absence of left finger(s); Y83.8 Other surgical procedures as the cause of abnormal reaction of the patient, or of later complication, without mention of misadventure at the time of the procedure
CPT/HCPCS: 97597

== ENCOUNTER → 2018-08-30 | Outpatient (CLI) | payer MEDICARE, OTHER ==
[~2018-08-30] MED LIST changes: -LIDOCAINE 2% 5 ML JELLY TP ONE
[2018-08-30 11:16] VITALS: BP 102/62
== END | disposition home or self-care (01) ==
LOC: HBOWC 11:03
PROVIDERS: ATTEND Internal Medicine
DX: T81.89XD Other complications of procedures, not elsewhere classified, subsequent encounter (principal); E11.622 Type 2 diabetes mellitus with other skin ulcer; L89.523 Pressure ulcer of left ankle, stage 3; L97.322 Non-pressure chronic ulcer of left ankle with fat layer exposed; L89.512 Pressure ulcer of right ankle, stage 2; L97.311 Non-pressure chronic ulcer of right ankle limited to breakdown of skin; E11.621 Type 2 diabetes mellitus with foot ulcer; L89.613 Pressure ulcer of right heel, stage 3; L97.418 Non-pressure chronic ulcer of right heel and midfoot with other specified severity; L89.893 Pressure ulcer of other site, stage 3; L97.511 Non-pressure chronic ulcer of other part of right foot limited to breakdown of skin; E11.42 Type 2 diabetes mellitus with diabetic polyneuropathy; E11.69 Type 2 diabetes mellitus with other specified complication; M86.142 Other acute osteomyelitis, left hand; D56.1 Beta thalassemia; M06.9 Rheumatoid arthritis, unspecified; F32.9 Major depressive disorder, single episode, unspecified; Z79.891 Long term (current) use of opiate analgesic; Z89.022 Acquired absence of left finger(s); Y83.8 Other surgical procedures as the cause of abnormal reaction of the patient, or of later complication, without mention of misadventure at the time of the procedure
CPT/HCPCS: 11042; 97597

== ENCOUNTER → 2018-09-27 | Outpatient (CLI) | payer MEDICARE, OTHER ==
[~2018-09-27] MED LIST changes: +LIDOCAINE 2% 5 ML JELLY ONE
[2018-09-27 11:00] VITALS: BP 124/73
== END | disposition home or self-care (01) ==
LOC: HBOWC 10:50
PROVIDERS: ATTEND Internal Medicine
DX: T81.89XD Other complications of procedures, not elsewhere classified, subsequent encounter (principal); E11.622 Type 2 diabetes mellitus with other skin ulcer; L89.523 Pressure ulcer of left ankle, stage 3; L97.322 Non-pressure chronic ulcer of left ankle with fat layer exposed; L89.512 Pressure ulcer of right ankle, stage 2; L97.311 Non-pressure chronic ulcer of right ankle limited to breakdown of skin; E11.621 Type 2 diabetes mellitus with foot ulcer; L89.613 Pressure ulcer of right heel, stage 3; L97.418 Non-pressure chronic ulcer of right heel and midfoot with other specified severity; L89.893 Pressure ulcer of other site, stage 3; L97.511 Non-pressure chronic ulcer of other part of right foot limited to breakdown of skin; E11.42 Type 2 diabetes mellitus with diabetic polyneuropathy; E11.69 Type 2 diabetes mellitus with other specified complication; M86.142 Other acute osteomyelitis, left hand; D56.1 Beta thalassemia; M06.9 Rheumatoid arthritis, unspecified; F32.9 Major depressive disorder, single episode, unspecified; Z79.891 Long term (current) use of opiate analgesic; Z89.022 Acquired absence of left finger(s); Y83.8 Other surgical procedures as the cause of abnormal reaction of the patient, or of later complication, without mention of misadventure at the time of the procedure
CPT/HCPCS: 97597

== ENCOUNTER → 2018-10-18 | Outpatient (CLI) | payer MEDICARE, OTHER ==
[~2018-10-18] MED LIST changes: -LIDOCAINE 2% 5 ML JELLY ONE
[2018-10-18 11:15] VITALS: BP 120/72
== END | disposition home or self-care (01) ==
LOC: HBOWC 10:59
PROVIDERS: ATTEND Internal Medicine
DX: T81.89XD Other complications of procedures, not elsewhere classified, subsequent encounter (principal); E11.622 Type 2 diabetes mellitus with other skin ulcer; L89.523 Pressure ulcer of left ankle, stage 3; L97.322 Non-pressure chronic ulcer of left ankle with fat layer exposed; L89.512 Pressure ulcer of right ankle, stage 2; L97.311 Non-pressure chronic ulcer of right ankle limited to breakdown of skin; E11.621 Type 2 diabetes mellitus with foot ulcer; L89.613 Pressure ulcer of right heel, stage 3; L97.411 Non-pressure chronic ulcer of right heel and midfoot limited to breakdown of skin; L89.893 Pressure ulcer of other site, stage 3; L97.511 Non-pressure chronic ulcer of other part of right foot limited to breakdown of skin; E11.42 Type 2 diabetes mellitus with diabetic polyneuropathy; E11.69 Type 2 diabetes mellitus with other specified complication; M86.142 Other acute osteomyelitis, left hand; M06.9 Rheumatoid arthritis, unspecified; F32.9 Major depressive disorder, single episode, unspecified; Z87.891 Personal history of nicotine dependence; Z89.022 Acquired absence of left finger(s); Z89.421 Acquired absence of other right toe(s); Z86.718 Personal history of other venous thrombosis and embolism; Y83.8 Other surgical procedures as the cause of abnormal reaction of the patient, or of later complication, without mention of misadventure at the time of the procedure
CPT/HCPCS: 97597

== ENCOUNTER → 2018-11-08 | Outpatient (CLI) | payer MEDICARE, OTHER ==
[~2018-11-08] MED LIST changes: +LIDOCAINE 2% 5 ML JELLY TP ONE
[2018-11-08 11:14] VITALS: BP 154/88
== END | disposition home or self-care (01) ==
LOC: HBOWC 10:58
PROVIDERS: ATTEND Internal Medicine
DX: T81.89XD Other complications of procedures, not elsewhere classified, subsequent encounter (principal); E11.622 Type 2 diabetes mellitus with other skin ulcer; L89.523 Pressure ulcer of left ankle, stage 3; L97.322 Non-pressure chronic ulcer of left ankle with fat layer exposed; L89.512 Pressure ulcer of right ankle, stage 2; L97.311 Non-pressure chronic ulcer of right ankle limited to breakdown of skin; E11.621 Type 2 diabetes mellitus with foot ulcer; L89.613 Pressure ulcer of right heel, stage 3; L97.411 Non-pressure chronic ulcer of right heel and midfoot limited to breakdown of skin; L89.893 Pressure ulcer of other site, stage 3; E11.42 Type 2 diabetes mellitus with diabetic polyneuropathy; E11.69 Type 2 diabetes mellitus with other specified complication; M86.142 Other acute osteomyelitis, left hand; M06.9 Rheumatoid arthritis, unspecified; F32.9 Major depressive disorder, single episode, unspecified; Z87.891 Personal history of nicotine dependence; Z89.022 Acquired absence of left finger(s); Z89.421 Acquired absence of other right toe(s); Z86.718 Personal history of other venous thrombosis and embolism; Y83.8 Other surgical procedures as the cause of abnormal reaction of the patient, or of later complication, without mention of misadventure at the time of the procedure
CPT/HCPCS: 11042

== ENCOUNTER → 2018-12-06 | Outpatient (CLI) | payer MEDICARE, OTHER ==
[~2018-12-06] MED LIST changes: -LIDOCAINE 2% 5 ML JELLY TP ONE; +TAMS-13 PO; -TAMS0.4C32 PO
== END | disposition home or self-care (01) ==
LOC: HBOWC 10:54
PROVIDERS: ATTEND Internal Medicine
DX: E11.622 Type 2 diabetes mellitus with other skin ulcer (principal); L89.513 Pressure ulcer of right ankle, stage 3; L97.312 Non-pressure chronic ulcer of right ankle with fat layer exposed; E11.42 Type 2 diabetes mellitus with diabetic polyneuropathy; E11.69 Type 2 diabetes mellitus with other specified complication; M86.142 Other acute osteomyelitis, left hand; M86.8X7 Other osteomyelitis, ankle and foot; M06.9 Rheumatoid arthritis, unspecified; F32.9 Major depressive disorder, single episode, unspecified; G82.20 Paraplegia, unspecified; Z87.891 Personal history of nicotine dependence; Z89.022 Acquired absence of left finger(s); Z89.421 Acquired absence of other right toe(s); Z86.718 Personal history of other venous thrombosis and embolism; Z79.82 Long term (current) use of aspirin
CPT/HCPCS: 11042

== ENCOUNTER → 2018-12-27 | Outpatient (CLI) | payer MEDICARE, OTHER | END | disposition home or self-care (01) | LOC: HBOWC 10:40 | PROVIDERS: ATTEND Internal Medicine | DX: E11.622 Type 2 diabetes mellitus with other skin ulcer (principal); L89.513 Pressure ulcer of right ankle, stage 3; L97.312 Non-pressure chronic ulcer of right ankle with fat layer exposed; E11.42 Type 2 diabetes mellitus with diabetic polyneuropathy; E11.69 Type 2 diabetes mellitus with other specified complication; M86.142 Other acute osteomyelitis, left hand; M86.8X7 Other osteomyelitis, ankle and foot; M06.9 Rheumatoid arthritis, unspecified; F32.9 Major depressive disorder, single episode, unspecified; G82.20 Paraplegia, unspecified; Z87.891 Personal history of nicotine dependence; Z89.022 Acquired absence of left finger(s); Z89.421 Acquired absence of other right toe(s); Z86.718 Personal history of other venous thrombosis and embolism; Z79.82 Long term (current) use of aspirin | CPT/HCPCS: 11042 ==

== ENCOUNTER → 2019-01-24 | Outpatient (CLI) | payer MEDICARE, OTHER | END | disposition home or self-care (01) | LOC: HBOWC 10:51 | PROVIDERS: ATTEND Internal Medicine | DX: E11.622 Type 2 diabetes mellitus with other skin ulcer (principal); L89.513 Pressure ulcer of right ankle, stage 3; L97.312 Non-pressure chronic ulcer of right ankle with fat layer exposed; E11.42 Type 2 diabetes mellitus with diabetic polyneuropathy; G82.20 Paraplegia, unspecified; M06.9 Rheumatoid arthritis, unspecified; E11.69 Type 2 diabetes mellitus with other specified complication; M86.8X7 Other osteomyelitis, ankle and foot; F32.9 Major depressive disorder, single episode, unspecified; Z79.82 Long term (current) use of aspirin; Z87.891 Personal history of nicotine dependence; Z86.718 Personal history of other venous thrombosis and embolism; Z89.012 Acquired absence of left thumb; Z89.021 Acquired absence of right finger(s) | CPT/HCPCS: 11042 ==

== ENCOUNTER → 2019-02-21 | Outpatient (CLI) | payer MEDICARE, OTHER | END | disposition home or self-care (01) | LOC: HBOWC 10:52 | PROVIDERS: ATTEND Internal Medicine | DX: E11.622 Type 2 diabetes mellitus with other skin ulcer (principal); L89.513 Pressure ulcer of right ankle, stage 3; L97.312 Non-pressure chronic ulcer of right ankle with fat layer exposed; E11.42 Type 2 diabetes mellitus with diabetic polyneuropathy; G82.20 Paraplegia, unspecified; M06.9 Rheumatoid arthritis, unspecified; E11.69 Type 2 diabetes mellitus with other specified complication; M86.8X7 Other osteomyelitis, ankle and foot; F32.9 Major depressive disorder, single episode, unspecified; Z79.82 Long term (current) use of aspirin; Z87.891 Personal history of nicotine dependence; Z86.718 Personal history of other venous thrombosis and embolism; Z89.012 Acquired absence of left thumb; Z89.021 Acquired absence of right finger(s) | CPT/HCPCS: 11042 ==